=== PATIENT | female | born 1965 | race Caucasian/White ===

== ENCOUNTER 2022-06-17 08:36 | Outpatient (CLI) | payer BC, SELFPAY ==
--- NOTE | ~2022-06-17 | US_ITS ---
Limited Abdominal Sonogram: Real-time sonographic imaging of the right upper quadrant was performed. Clinical History: Abdominal pain Findings: The liver appears echogenic, with no evidence of mass lesion or bile duct dilatation. Main portal vein demonstrates normal direction of flow. The gallbladder is well distended, and appears no rmal with no evidence of gallstone or wall thickening. The common bile duct measures 3 mm. The visua lized pancreas, aorta, and IVC are unremarkable. Impression: Diffuse fatty infiltration of the liver. Reviewed, dictated and finalized at location M. [facility] JUDGE Impression: Diffuse fatty infiltration of the liver.
== END 2022-06-17 08:37 | disposition home or self-care (01) ==
PROVIDERS: PCP Registered Nurse; Visit Provider Registered Nurse
DX: R10.11 Right upper quadrant pain (principal); K76.0 Fatty (change of) liver, not elsewhere classified
CPT/HCPCS: 76705

== ENCOUNTER 2024-01-01 08:14 | Outpatient (CLI) | payer BC, SELFPAY ==
--- NOTE | ~2024-01-01 | US_ITS ---
Limited Abdominal Sonogram: Real-time sonographic imaging of the right upper quadrant was performed. Clinical History: Right upper quadrant pain Findings: The liver appears mildly echogenic, with no evidence of mass lesion or bile duct dilatatio n. Main portal vein demonstrates normal direction of flow. The gallbladder is well distended, and con tains small layering gallstones. No gallbladder wall thickening. The common bile duct measures 4 mm. The visualized pancreas, aorta, and IVC are unremarkable. Right kidney measures 9.9 cm in length, wi th unremarkable appearance. Impression: Cholelithiasis. Probable mild fatty infiltration of liver. Reviewed, dictated and finalized at location M. Impression: Cholelithiasis. Probable mild fatty infiltration of liver.
== END 2024-01-01 08:15 ==
LOC: MICIMG 08:16
PROVIDERS: PCP Registered Nurse; Visit Provider Nurse Practitioner
DX: R10.11 Right upper quadrant pain (principal); M25.511 Pain in right shoulder; K80.20 Calculus of gallbladder without cholecystitis without obstruction
CPT/HCPCS: 76705